=== PATIENT | male | born 1995 | race Caucasian/White ===

== ENCOUNTER 2020-09-30 08:31 | Emergency (ER) | payer BC ==
[~2020-09-30] VITALS: Ht 180.3 cm; Wt 120.0 kg
[2020-09-30] MEDS ORDERED: CLIN300C9 PO (10:30)
[2020-09-30] MEDS ORDERED: OXYC1TAB15 PO (10:30)
--- NOTE | 2020-09-30 10:32 | ED.ADGEN ---
Past Medical History Past Medical History: No Pertinent History Past Surgical History: Other Additional Past Surgical Histo: left ankle surgery Smoking Status: Current Every Day Smoker Additional Information: 2-3 cigarettes daily Alcohol Use: Rarely General Adult EDM: Chief Complaint: DENTAL PROBLEM HPI: HPI: Patient is 25-year-old previously healthy male who presents to the emergency room complaining of left lower dental pain with swelling in his cheek. He states the pain started a couple weeks ago. He does have a dental appointment tomorrow. He states that the swelling started yesterday. He denies any difficulty with talking, swallowing, chewing. He does state he has some pain in his face from the swelling. He denies any, fevers. He has not had any drainage. Pain is achy and throbbing in nature. Review of Systems: Review of Systems: Complete ROS is negative unless otherwise documented in HPI Allergies: Allergies: Allergies Coded Allergies Type Severity Reaction Last Updated Verified morphine Allergy Intermediate rash 09/30/20 Yes Uncoded Allergies Type Severity Reaction Last Updated Verified dial soap Allergy Intermediate rash, itching 09/30/20 Physical Exam: PE: General: Awake, alert, NAD. Well Nourished, well hydrated. Cooperative HEENT: Atraumatic, EOMI, PERRL, airway patent, moist oral mucosa, swelling to the left cheek, no drainable abscess in the oral mucosa, maintaining airway, talking without difficulty Neck: Supple, trachea midline Respiratory: CTA bilaterally, normal effort, no wheezing/crackles CV: RRR, no murmur, cap refill <2 GI: Soft, nondistended, nontender, no masses MSK: No obvious deformities Skin: Warm, dry, intact Neuro: A&O x3, speech NL, sensory and motor grossly intact, no focal deficits Psych: Normal affect, normal mood, not suicidal or homicidal Current Patient Data: Vital Signs: Vital Signs Date Time Temp Pulse Resp B/P (MAP) Pulse Ox O2 Delivery O2 Flow Rate FiO2 09/30/20 08:45 97.2 90 20 158/105 (122) 96 Room Air 97.2 EKG: EKG: [] Heart Score: C/O Chest Pain: N/A Risk Factors: Risk Factors: DM, Current or recent (<one month) smoker, HTN, HLP, family history of CAD, obesity. Risk Scores: Score 0 - 3: 2.5% MACE over next 6 weeks - Discharge Home Score 4 - 6: 20.3% MACE over next 6 weeks - Admit for Clinical Observation Score 7 - 10: 72.7% MACE over next 6 weeks - Early Invasive Strategies Radiology/Procedures: Radiology/Procedures: [] Course & Med Decision Making: Course & Med Decision Making Pertinent Labs and Imaging studies reviewed. (See chart for details) Patient is a 25-year-old male who presents to the emergency room with a dental infection. Patient does not have any difficulty with swallowing or talking. He is not febrile. There is no signs of Juan's. Patient will be placed on clindamycin. He has a dental appointment tomorrow. Patient's test results and vitals while in the ED were fully reviewed and discussed with the patient. Patient is stable and at this time does not need admission to the hospital. We have discussed strict return precautions and the importance of following up with their Primary Care Physician. Patient stated understanding and was given an opportunity to ask any questions. Patient is in agreement with plan. Griselda Disclaimer: Griselda Disclaimer: This electronic medical record was generated, in whole or in part, using a voice recognition dictation system. Departure Departure Impression: Primary Impression: Dental infection Disposition: HOME / SELF CARE / HOMELESS Condition: STABLE Referrals: NO PCP (PCP) Patient Instructions: Dental Abscess Scripts Oxycodone/Apap 5-325 (PERCOCET 5-325 MG TABLET ) 1 Each Tablet 1 TAB PO PRN Q6HRS PRN for PAIN, #8 TAB 0 Refills Prov: DIMA SOSA MD 09/30/20 Clindamycin Hcl (CLINDAMYCIN HCL) 300 Mg Capsule 1 CAP PO TID, #21 CAP Prov: DIMA SOSA MD 09/30/20 DIMA SOSA MD September 30, 2020 10:32
[2020-09-30 11:41] VITALS: BP 160/97
== END 2020-09-30 11:41 | disposition home or self-care (01) ==
LOC: ER 08:31
DX: K04.7 Periapical abscess without sinus (principal); F17.210 Nicotine dependence, cigarettes, uncomplicated; Z88.5 Allergy status to narcotic agent
CPT/HCPCS: 99283